=== PATIENT | female | born 2000 | race Caucasian/White ===

== ENCOUNTER → 2020-12-04 | Emergency (ER) | payer OTHER ==
[~2020-12-04] VITALS: Ht 170.2 cm; Wt 77.3 kg
[~2020-12-04] MED LIST: FLUORESCEIN SODIUM 1 MG STRIP OD ONE; FLUORESCEIN SODIUM 1 MG STRIP ONE; PROPARACAINE HCL 0.5% 15 ML OPHTHALMIC SOLUTION OD ONE
[2020-12-04 11:09] VITALS: BP 110/57
== END | disposition home or self-care (01) ==
LOC: EMS 10:40
DX: H10.211 Acute toxic conjunctivitis, right eye (principal)
CPT/HCPCS: 99283